=== PATIENT | female | born 1960 | race Caucasian/White ===

== ENCOUNTER 2024-05-05 06:30 | Day surgery (SDC) | payer BC, SELFPAY ==
--- NOTE | 2024-04-14 13:39 | CM ---
Patient is scheduled for an elective R TKR on 05/05/24. Spoke with patient prior to surgery via telephone. Patient had a L TKR at in 2016. Reintroduced role of Orthopedic Navigator. Patient reports that she lives with alone in a one story home.
There are 12 steps to enter. She currently functions independently. She works at [employer]. She has a cane and rolling walker. She has never had VN services. PCP is Darlyn Polo.
Discussed orthopedic program and post surgical plans. Reviewed anticipated length of stay and that goal is for her to return home at discharge. Also reviewed outpatient PT. Patient is in agreement with tentative plan and will go directly to
outpatient PT at [facility]. She will be staying with her sister for two weeks (sister's home is two floors with three steps to enter. She will stay on the first floor).
Patient will complete online education.
Plan: Orthopedic Navigator will remain available to assist with the care of patient and will reassess discharge needs after surgery.
[2024-04-20 12:34] VITALS: BMI 38.6
[2024-04-20 14:09] LABS: Hematocrit 35.9 % (37.0-47.0); Mean Corp Hgb Conc. 33.4 g/dL (33.0-37.0); Mean Corpuscular Hgb 30.3 pg (27.0-31.0); Mean Corpuscular Volume 90.7 fL (81.0-99.0); Platelet Count 246 10^3/uL (130-400); Red Blood Cell Count 3.96 10^6/uL (4.20-5.40); Red Cell Dist. Width 13.4 % (11.5-14.5); White Blood Cell Count 7.8 10^3/uL (4.8-10.8)
[2024-04-20 14:46] LABS: ALT (SGPT) 23 U/L (0-35); AST (SGOT) 25 U/L (14-36); Albumin 4.5 g/dl (3.5-5.0); Alkaline Phosphatase 81 U/L (38-126); Blood Urea Nitrogen 21 mg/dl (7-17); Calcium 10.2 mg/dl (8.4-10.2); Carbon Dioxide 26 mmol/L (22-30); Chloride 101 mmol/L (98-107); Estimated Creatinine Clearance 84 ml/min; Glucose 103 mg/dl (70-99); Potassium 4.8 mmol/L (3.5-5.1); Sodium 139 mmol/L (135-145); Total Bilirubin 0.7 mg/dl (0.2-1.3); Total Protein 7.5 g/dl (6.3-8.2); eGFR > 60.00
[2024-04-21 08:23] VITALS: BMI 38.6
[2024-04-21 09:09] LABS: Glycohemoglobin (HgbA1c) 6.5 % (4.0-5.6)
[2024-05-05] VITALS (17 sets, daily range): BP systolic 92–148; BP diastolic 45–84; PULSE 56; O2SAT 99; BMI 38.6
[2024-05-05 08:37] LABS: Glucose - Point of Care 112 mg/dl (70-99)
[2024-05-05] MEDS: TYLENOL 650 MG PO ×4 (08:39→23:35)
[2024-05-05] MEDS: CELEBREX 200 MG PO (08:39)
[2024-05-05] MEDS: NORMOSOL-R 1000 IV ×2 (08:40→15:10)
[2024-05-05 10:20] LABS: Glucose - Point of Care 108 mg/dl (70-99)
[2024-05-05 12:59] LABS: Glucose - Point of Care 88 mg/dl (70-99)
[2024-05-05] MEDS: TORADOL 15 MG IV (14:16)
[2024-05-05] MEDS: ROXICODONE 5 MG PO ×2 (14:21→21:24)
[2024-05-05 17:11] LABS: Glucose - Point of Care 163 mg/dl (70-99)
[2024-05-05] MEDS: NOVOLOG FLEXPEN-LOW RESISTANCE 1 UNITS SC (17:33)
[2024-05-05] MEDS: ASPIRIN 325 MG PO (17:34)
[2024-05-05] MEDS: ZOFRAN IV (17:34)
--- NOTE | 2024-05-05 18:31 | PTCARENOTE ---
Received patient from PACU via bed around 1530 in stable condition. Patient pain controlled. + Movement + sensation. DTV. OOB to chair. Marco Antonio morocho in reach.
[2024-05-05] MEDS: DECADRON 4 MG PO (20:55)
[2024-05-05] MEDS: ANCEF 5 IV (20:55)
[2024-05-05] MEDS: NEURONTIN 300 MG PO (20:55)
[2024-05-05] MEDS: COLACE 100 MG PO (20:55)
[2024-05-05] MEDS: PEPCID 20 MG PO (20:56)
[2024-05-05] MEDS: SENOKOT 17.1999999999999993 MG PO (20:56)
[2024-05-05] MEDS: GLUCOPHAGE 500 MG PO (20:57)
[2024-05-05] MEDS: ZYRTEC 10 MG PO (20:58)
[2024-05-05] MEDS: ZOFRAN 4 MG IV (20:58)
[2024-05-05 21:34] LABS: Glucose - Point of Care 168 mg/dl (70-99)
[2024-05-05] MEDS: BACTROBAN 2% OINTMENT 1 APPLIC NASAL (22:02)
[2024-05-06] MEDS: TORADOL 15 MG IV (02:49)
[2024-05-06 04:15] VITALS: BP 120/62
[2024-05-06] MEDS: TYLENOL 650 MG PO ×3 (04:23→11:53)
[2024-05-06] MEDS: ANCEF 5 IV (04:23)
[2024-05-06] MEDS: SYNTHROID 137 MCG PO (05:59)
[2024-05-06 07:17] VITALS: BP 138/72
[2024-05-06 07:56] LABS: Glucose - Point of Care 145 mg/dl (70-99)
[2024-05-06] MEDS: NOVOLOG FLEXPEN-LOW RESISTANCE SC ×2 (07:57→12:00)
[2024-05-06] MEDS: ZOFRAN IV ×2 (07:58→12:01)
[2024-05-06] MEDS: DECADRON 4 MG PO (07:58)
[2024-05-06] MEDS: COLACE 100 MG PO (07:58)
[2024-05-06] MEDS: ASPIRIN 325 MG PO (07:58)
[2024-05-06] MEDS: MOBIC 15 MG PO (07:58)
[2024-05-06] MEDS: SENOKOT 17.1999999999999993 MG PO (07:58)
[2024-05-06] MEDS: BACTROBAN 2% OINTMENT 1 APPLIC NASAL (07:59)
[2024-05-06] MEDS: ROXICODONE 5 MG PO (08:05)
--- NOTE | 2024-05-06 09:00 | CM ---
Addendum entered by Faith Jones 05/06/24 10:49:
Patient did well in therapy. She has no concerns about going home and has updated her sister.
Original Note:
Reviewed chart and held rounds with PT, OT and nursing. Patient admitted as planned for elective R TKR. Met with patient at bedside. Confirmed information previously obtained for assessment. Also discussed discharge plans. The plan is for patient to
go to her sister's home at discharge. Patient will go directly to outpatient PT and will come to . She has an appointment scheduled for Friday, 05/07.
Patient has a rolling walker, cpap and cane.
She will use [facility] pharmacy for discharge prescriptions.
[2024-05-06 09:10] VITALS: BP 133/71; PULSE 49; O2SAT 97
[2024-05-06 10:37] VITALS: BP 117/64; PULSE 40; O2SAT 97
[2024-05-06 11:05] VITALS: BP 131/61
[2024-05-06 12:16] LABS: Glucose - Point of Care 174 mg/dl (70-99)
--- NOTE | 2024-05-06 12:17 | W.PN.ORTHO ---
Today's Communication / Plan
-
d/c
Assessment
.
Distal Motor Intact: Yes
Dressing:
Clean, dry and intact.
Assessment:
Hx N/V due to anesthesia--Scopalomine patch provided [id number] scheduled--no n/v this visit
Plan
.
Surgery / Date: Madison Salcedo 05/05/24
DVT Prophylaxis: Aspirin
Activity:
Out of bed.
PT/OT
Discharge Plan: Home w/ Outpatient PT
Subjective
.
.:
Patient resting comfortably.
Vital Signs and Labs
.
Vital Signs and Labs:
Lab Results
04/20/24 12:26
04/20/24 12:26
Temp Pulse Resp BP Pulse Ox
98.8 F 49 16 131/61 98
05/06/24 11:05 05/06/24 11:55 05/06/24 11:05 05/06/24 11:05 05/06/24 11:05
Non-invasive Hgb result: 11.2
Physical Exam
-
HEENT: No pallor, cyanosis, or jaundice. Throat clear.
NECK: Supple. No JVD.
RESPIRATORY: Lungs clear to auscultation.
CVS: S1, S2 normal. RRR.� No murmur, rub or gallop.
ABDOMEN: Soft, non-tender. No distension. BS+/normal.
EXTREMITIES: strength equal, no calf pain with palpation
WILD ANIMAL CARETAKER: AOx3. No focal deficits. customer loyalty representative grossly intact
[2024-05-06] MEDS: NOVOLOG FLEXPEN-LOW RESISTANCE 1 UNITS SC (12:19)
--- NOTE | 2024-05-06 12:28 | W.DS.TRANS ---
DC Summary - Pharmacy Order Entry Technician
-
Discharge Instructions:
Discharge Diagnosis/Procedures R TKA Dr. Salcedo 05/05/24
Diet Diabetic, Carb Controlled
Activity With Walker
Driving Restrictions No driving
Bathing Restrictions OK to Shower
Instructions:
Stand-Alone Forms: Total Hip/Knee Replacement D/C
Changes to Home Medications: Yes
Discharge Medications:
DC Medications w/original date entered in [facility]
calcium carbonate 334 mg-magnesium oxide 134 mg-zinc sulf 5 mg tablet 1 ea PO DAILY 04/22/16
cetirizine 10 mg tablet 10 mg PO HS ##0 05/16/16
ibuprofen 200 mg tablet 200 - 600 mg (1 - 3 x 200 mg) PO PRN PRN pain ##0 05/16/16
metformin 500 mg tablet 500 mg PO HS ##0 05/16/16
cholecalciferol (vitamin D3) 25 mcg (1,000 unit) tablet (Vitamin D3) 25 mcg PO DAILY 04/20/24
geriatric kbximyze-[id number]-zqee 1 tab PO DAILY 04/20/24
levothyroxine 125 mcg tablet 125 mcg PO DIRECTED 04/20/24
levothyroxine 137 mcg tablet 137 mcg PO DIRECTED 04/20/24
mupirocin 2 % topical ointment 1 applic topical BID infection prevention #1 tube 04/20/24
scopolamine base 1 mg over 3 days transdermal patch 1 patch transdermal Q72H nausea prevention #1 ea 04/20/24
vitamin B complex 1 tab PO DAILY 04/20/24
Saccharomyces boulardii 250 mg capsule (Florastor) 250 mg PO BID #1 cap 05/06/24
acetaminophen 500 mg tablet (Tylenol Extra Strength) 1,000 mg (2 x 500 mg) PO QID #0 tabs 05/06/24
aspirin 325 mg tablet 325 mg PO DAILY blood clot prevention #1 tab 05/06/24
clindamycin HCl 300 mg capsule 300 mg PO QID Infection #20 caps 05/06/24
docusate sodium 100 mg capsule (Colace) 100 mg PO BID stool softner #1 cap 05/06/24
famotidine 20 mg tablet 20 mg PO HS GI prophylaxis #30 tabs 05/06/24
gabapentin 300 mg capsule 300 mg PO HS sleep/pain #10 caps 05/06/24
magnesium hydroxide 400 mg/5 mL oral suspension (Milk of Magnesia) 30 ml PO HS PRN Constipation #1 mL 05/06/24
meloxicam 15 mg tablet 15 mg PO DAILY anti-inflammatory #14 tabs 05/06/24
ondansetron 4 mg disintegrating tablet 4 mg PO Q6H PRN n/v #20 tabs 05/06/24
oxycodone 5 mg tablet 5 mg PO Q6H PRN 1 tab moderate pain, 2 tabs severe pain #30 tabs 05/06/24
sennosides 8.6 mg tablet (Senokot) 17.2 mg (2 x 8.6 mg) PO BID laxative #2 tabs 05/06/24
Home Medication Changes
clindamycin HCl 300 mg capsule 300 mg PO QID Infection #20 caps 05/06/24�
famotidine 20 mg tablet 20 mg PO HS GI prophylaxis #30 tabs 05/06/24�
gabapentin 300 mg capsule 300 mg PO HS sleep/pain #10 caps 05/06/24�
meloxicam 15 mg tablet 15 mg PO DAILY anti-inflammatory #14 tabs 05/06/24�
ondansetron 4 mg disintegrating tablet 4 mg PO Q6H PRN n/v #20 tabs 05/06/24�
oxycodone 5 mg tablet 5 mg PO Q6H PRN 1 tab moderate pain, 2 tabs severe pain #30 tabs 05/06/24�
Pending Results: No
== END 2024-05-06 14:21 | disposition home or self-care (01) ==
LOC: SDS 06:30
PROVIDERS: ATTENDING PHYSICIAN Orthopaedic Surgery; FAMILY PHYSICIAN Internal Medicine; OTHER PHYSICIAN Physician Assistant Medical
DX: M17.11 Unilateral primary osteoarthritis, right knee (principal)
CPT/HCPCS: 27447; 36415; 73560; 80053; 82962; 83036; 85027; 87070; 93005; 94660; 97110; 97116; 97162; 97166; 97535; C1713; C1776

== ENCOUNTER 2024-05-10 12:03 | Outpatient (RCR) | payer BC, SELFPAY | END 2024-05-10 23:59 | disposition home or self-care (01) | LOC: RPT 12:03 | PROVIDERS: ATTENDING PHYSICIAN Orthopaedic Surgery; FAMILY PHYSICIAN Internal Medicine | DX: Z47.1 Aftercare following joint replacement surgery (principal); Z96.651 Presence of right artificial knee joint; Z73.6 Limitation of activities due to disability; R26.2 Difficulty in walking, not elsewhere classified | CPT/HCPCS: 97010; 97110; 97162; 97530 ==

== ENCOUNTER 2024-06-16 14:13 | Outpatient (RCR) | payer BC, SELFPAY | END 2024-06-16 23:59 | disposition home or self-care (01) | LOC: RPT 14:13 | PROVIDERS: ATTENDING PHYSICIAN Orthopaedic Surgery; FAMILY PHYSICIAN Internal Medicine | DX: Z47.1 Aftercare following joint replacement surgery (principal); Z96.651 Presence of right artificial knee joint; Z73.6 Limitation of activities due to disability; R26.9 Unspecified abnormalities of gait and mobility | CPT/HCPCS: 97010; 97110; 97112; 97530 ==

== ENCOUNTER 2024-07-14 16:24 | Outpatient (RCR) | payer BC, SELFPAY | END 2024-07-14 23:59 | disposition home or self-care (01) | LOC: RPT 16:24 | PROVIDERS: ATTENDING PHYSICIAN Orthopaedic Surgery; FAMILY PHYSICIAN Internal Medicine | DX: Z47.1 Aftercare following joint replacement surgery (principal); Z96.651 Presence of right artificial knee joint; Z73.6 Limitation of activities due to disability | CPT/HCPCS: 97110; 97112; 97530 ==

== ENCOUNTER → 2024-07-31 07:17 | Outpatient (REF) | payer BC, SELFPAY ==
[2024-07-31 08:56] LABS: % Basophils 0.8 % (0-2); % Immature Granulocytes 0.4 % (0-0.5); % Lymphocytes 20.1 % (20.5-51.1); % Monocytes 10.2 % (1.7-9.3); % Neutrophils 65.5 % (42.2-75.2); Absolute Eosinophils 0.1 10^3/uL (0-0.7); Absolute Monocytes 0.5 10^3/uL (0.1-0.6); Absolute Neutrophils 3.1 10^3/uL (1.4-6.5); Hematocrit 35.6 % (37.0-47.0); Hemoglobin 11.7 g/dL (12.0-16.0); Mean Corp Hgb Conc. 32.9 g/dL (33.0-37.0); Mean Corpuscular Hgb 31.2 pg (27.0-31.0); Mean Corpuscular Volume 94.9 fL (81.0-99.0); Nucleated Red Blood Cells % 0 %; Platelet Count 207 10^3/uL (130-400); Red Blood Cell Count 3.75 10^6/uL (4.20-5.40); Red Cell Dist. Width 13.6 % (11.5-14.5); White Blood Cell Count 4.7 10^3/uL (4.8-10.8)
[2024-07-31 09:18] LABS: ALT (SGPT) 23 U/L (0-35); AST (SGOT) 28 U/L (14-36); Albumin 4.4 g/dl (3.5-5.0); Alkaline Phosphatase 65 U/L (38-126); Blood Urea Nitrogen 20 mg/dl (7-17); Calcium 9.5 mg/dl (8.4-10.2); Carbon Dioxide 27 mmol/L (22-30); Chloride 102 mmol/L (98-107); Glucose 111 mg/dl (70-99); HDL Cholesterol 80 mg/dl; LDL Cholesterol, Calculated 111 mg/dl; Potassium 4.1 mmol/L (3.5-5.1); Sodium 143 mmol/L (135-145); Total Bilirubin 0.7 mg/dl (0.2-1.3); Total Cholesterol 206 mg/dl (50-199); Triglyceride 77 mg/dl (10-149); Very Low Density Lipoprotein 15 mg/dl (0-30); eGFR > 60.00
[2024-07-31 09:29] LABS: LDL Cholesterol, Direct 99 mg/dl
[2024-07-31 09:35] LABS: Vitamin D, 25-OH*** 42.8 ng/mL (30-80)
[2024-07-31 09:49] LABS: TSH Reflex To Free T4 8.68 uIU/ml (0.47-4.68)
[2024-07-31 10:10] LABS: Microalbumin, Random Urine <0.6 mg/dl (0.6-1.7)
[2024-07-31 10:18] LABS: Free T4 1.15 ng/dl (0.78-2.19)
[2024-07-31 10:56] LABS: Glycohemoglobin (HgbA1c) 5.9 % (4.0-5.6)
== END ==
LOC: REG 07:17
PROVIDERS: ATTENDING PHYSICIAN Nurse Practitioner Family; FAMILY PHYSICIAN Internal Medicine
DX: E11.9 Type 2 diabetes mellitus without complications (principal); E55.9 Vitamin D deficiency, unspecified; M85.88 Other specified disorders of bone density and structure, other site; E66.01 Morbid (severe) obesity due to excess calories; E03.8 Other specified hypothyroidism; E06.3 Autoimmune thyroiditis; Z00.00 Encounter for general adult medical examination without abnormal findings; C50.919 Malignant neoplasm of unspecified site of unspecified female breast
CPT/HCPCS: 36415; 80053; 80061; 82043; 82306; 82570; 83036; 83721; 84439; 84443; 85025

== ENCOUNTER → 2024-09-20 13:40 | Outpatient (REF) | payer BC, SELFPAY | LOC: RAD 13:40 | PROVIDERS: ATTENDING PHYSICIAN Internal Medicine Endocrinology, Diabetes & Metabolism; FAMILY PHYSICIAN Internal Medicine | DX: M85.80 Other specified disorders of bone density and structure, unspecified site (principal) | CPT/HCPCS: 77080 ==

== ENCOUNTER → 2024-11-16 13:43 | Outpatient (REF) | payer BC, SELFPAY | LOC: WDC 13:43 | PROVIDERS: ATTENDING PHYSICIAN Obstetrics & Gynecology Gynecology; FAMILY PHYSICIAN Internal Medicine | DX: Z85.3 Personal history of malignant neoplasm of breast (principal) | CPT/HCPCS: 76641 ==

== ENCOUNTER → 2024-12-10 16:49 | Outpatient (REF) | payer BC, SELFPAY ==
[2024-12-10 18:03] LABS: Free T4 1.34 ng/dl (0.78-2.19)
[2024-12-10 18:16] LABS: TSH 2.87 uIU/ml (0.47-4.68)
[2024-12-13 03:09] LABS: Total T3 (Sendout) 95 ng/dL (80-200)
== END ==
LOC: REG 16:49
PROVIDERS: ATTENDING PHYSICIAN Internal Medicine Endocrinology, Diabetes & Metabolism; FAMILY PHYSICIAN Internal Medicine
DX: E03.9 Hypothyroidism, unspecified (principal); E06.3 Autoimmune thyroiditis
CPT/HCPCS: 36415; 84439; 84443; 84480

== ENCOUNTER → 2025-01-29 07:02 | Outpatient (REF) | payer BC, SELFPAY ==
[2025-01-29 08:34] LABS: Blood Urea Nitrogen 20 mg/dl (7-17); Calcium 9.4 mg/dl (8.4-10.2); Carbon Dioxide 28 mmol/L (22-30); Chloride 103 mmol/L (98-107); Glucose 115 mg/dl (70-99); HDL Cholesterol 78 mg/dl; LDL Cholesterol, Calculated 52 mg/dl; Potassium 4.4 mmol/L (3.5-5.1); Sodium 140 mmol/L (135-145); Total Cholesterol 145 mg/dl (50-199); Triglyceride 78 mg/dl (10-149); Very Low Density Lipoprotein 15 mg/dl (0-30); eGFR > 60.00
== END ==
LOC: REG 07:02
PROVIDERS: ATTENDING PHYSICIAN Nurse Practitioner Family
DX: E11.9 Type 2 diabetes mellitus without complications (principal); E78.00 Pure hypercholesterolemia, unspecified
CPT/HCPCS: 36415; 80048; 80061

== ENCOUNTER → 2025-07-30 07:29 | Outpatient (REF) | payer BC, SELFPAY ==
[2025-07-30 08:53] LABS: Hematocrit 38.0 % (37.0-47.0); Hemoglobin 12.1 g/dL (12.0-16.0); Mean Corp Hgb Conc. 31.8 g/dL (33.0-37.0); Mean Corpuscular Volume 95.2 fL (81.0-99.0); Nucleated Red Blood Cells % 0 %; Platelet Count 245 10^3/uL (130-400); Red Cell Dist. Width 14.5 % (11.5-14.5)
[2025-07-30 09:13] LABS: Urine Character Clear (Clear)
[2025-07-30 09:27] LABS: ALT (SGPT) 30 U/L (0-35); AST (SGOT) 27 U/L (14-36); Albumin 4.8 g/dl (3.5-5.0); Alkaline Phosphatase 70 U/L (38-126); Blood Urea Nitrogen 22 mg/dl (7-17); Calcium 9.5 mg/dl (8.4-10.2); Carbon Dioxide 33 mmol/L (22-30); Chloride 101 mmol/L (98-107); Glucose 122 mg/dl (70-99); Potassium 5.0 mmol/L (3.5-5.1); Sodium 140 mmol/L (135-145); Total Protein 7.5 g/dl (6.3-8.2); eGFR > 60.00
[2025-07-30 09:41] LABS: Vitamin D, 25-OH*** 42.2 ng/mL (30-80)
[2025-07-30 09:54] LABS: TSH 27.40 uIU/ml (0.47-4.68)
[2025-07-30 10:18] LABS: Urine Red Blood Cell 0-2 /HPF (0-2); Urine Squamous Cell >30 /LPF (Few); Urine White Cell 0-2 /HPF (0-5)
[2025-07-30 10:39] LABS: Glycohemoglobin (HgbA1c) 6.4 % (4.0-5.6)
== END ==
LOC: REG 07:29
PROVIDERS: ATTENDING PHYSICIAN Internal Medicine Endocrinology, Diabetes & Metabolism
DX: E11.9 Type 2 diabetes mellitus without complications (principal); E03.9 Hypothyroidism, unspecified; M85.00 Fibrous dysplasia (monostotic), unspecified site; E55.9 Vitamin D deficiency, unspecified
CPT/HCPCS: 36415; 80053; 81003; 81015; 82306; 83036; 84436; 84443; 85025

== ENCOUNTER → 2025-08-10 06:23 | Outpatient (REF) | payer BC, SELFPAY ==
[2025-08-10 07:53] LABS: HDL Cholesterol 82 mg/dl; LDL Cholesterol, Calculated 55 mg/dl; Very Low Density Lipoprotein 15 mg/dl (0-30)
== END ==
LOC: REG 06:23
PROVIDERS: ATTENDING PHYSICIAN Nurse Practitioner Family; FAMILY PHYSICIAN Internal Medicine
DX: E78.2 Mixed hyperlipidemia (principal)
CPT/HCPCS: 36415; 80061

== ENCOUNTER → 2025-11-08 16:41 | Outpatient (REF) | payer BC, SELFPAY ==
[2025-11-08 18:14] LABS: TSH 2.88 uIU/ml (0.47-4.68)
== END ==
LOC: REG 16:41
PROVIDERS: ATTENDING PHYSICIAN Internal Medicine Endocrinology, Diabetes & Metabolism; FAMILY PHYSICIAN Internal Medicine
DX: E03.9 Hypothyroidism, unspecified (principal)
CPT/HCPCS: 36415; 84439; 84443; 84480